=== PATIENT | male | born 1955 | race Caucasian/White ===

== ENCOUNTER 2021-07-10 07:51 | Outpatient (CLI) | payer OTHER, SELFPAY ==
[2021-07-10 08:46] LABS: Alanine Aminotransferase 43 U/L (4-50); Albumin Level 4.4 g/dL (3.5-5.1); Alkaline Phosphatase 94 U/L (38-126); Anion Gap 7 mmol/L (8-16); Aspartate Amino Transferase 31 U/L (17-59); Bilirubin,Total 0.3 mg/dL (0.2-1.3); Blood Urea Nitrogen 18 mg/dL (9-20); Calcium 9.5 mg/dL (8.4-10.2); Carbon Dioxide 27 mmol/L (22-30); Chloride 106 mmol/L (98-107); Cholesterol 193 mg/dL (0-200); Estimated Glomerular Filt Rate > 60; Glucose 124 mg/dL (65-110); HDL Direct 39 mg/dL; Potassium 4.5 mmol/L (3.4-5.0); Sodium 140 mmol/L (137-145); Triglycerides 161 mg/dL (<150)
[2021-07-10 08:50] LABS: Hemoglobin A1C 5.5 % (<5.7)
[2021-07-10 08:57] LABS: LDL Cholesterol Direct 108 mg/dL
[2021-07-10 09:38] LABS: Prostate Specific Antigen 3.2 ng/mL (< OR = 4.0)
[2021-07-15 11:03] LABS: Testosterone Total 193 ng/dL (250-1100)
== END 2021-07-10 07:52 | disposition home or self-care (01) ==
LOC: ANHLAB 07:55
PROVIDERS: PCP Nurse Practitioner; Visit Provider Nurse Practitioner
DX: Z12.5 Encounter for screening for malignant neoplasm of prostate (principal); Z68.41 Body mass index [BMI] 40.0-44.9, adult; E29.1 Testicular hypofunction
CPT/HCPCS: 36415; 80053; 80061; 83036; 84153; 84403; G0103

== ENCOUNTER 2021-08-31 02:10 | Day surgery (SDC) | payer OTHER, SELFPAY ==
[2021-08-22 14:31] VITALS: BMI 36.6
[2021-08-31 11:16] VITALS: BP 156/79; PULSE 87; RESP 18; TEMP 36.8; O2SAT 98; BMI 36.3
[2021-08-31] MEDS: LACTATED RINGERS 1,000 ML 150 ML IV CONT (11:20)
--- NOTE | 2021-08-31 11:32 | PM.HPGS ---
History of Present Illness History of Present Illness Consent: Risks, benefits, and alternatives have been discussed and questions answered. Patient agrees to proceed with procedure. Chief complaint: hx of colon polyps Narrative: Epifanio Lemus is a 66 year old male referred for colon cancer screening. He has a history of having had multiple polyps in the past Review of Systems Review of Systems: All systems reviewed & are unremarkable except as noted in HPI and below PMFSH Past Medical History Medical History Bruising Change in weight Dizziness Heat intolerance Skin change Family History Family History Father Family history of malignant neoplasm of bone Sibling Family history of pancreatic cancer Family history of lung cancer Mother Cancer Breast, Brain. Grandparent Diabetes mellitus Grandparent Diabetes mellitus Hypertension Heart disease Cerebrovascular accident Other Family history of coronary artery disease Family history of malignant neoplasm of breast Family history of malignant neoplasm of male breast Social History Social History Smoking packs per day: 1 Smoking cigarettes per day: 20.0 Years smoked: 15 Smoking pack-years: 15.00 Smoking status: Former smoker Tobacco type: cigarettes Second hand tobacco smoke exposure: No Smoking end date: 09/15/03 Alcohol intake: never Substance use: never Substance use type: does not use Living arrangements: with family Gender identity (if verbalized by the patient): Male Spiritual care concerns: No Meds Home Medications and Allergies Home Medications Medication Instructions Recorded Confirmed Type No Home Medications 08/22/21 08/31/21 History Allergies Allergy/AdvReac Type Severity Reaction Status Date / Time meperidine Allergy Unknown Unknown Verified 08/31/21 11:15 Vital Signs Vital Signs - 24 hr 08/31/21 11:16 Temperature 36.8 C Pulse Rate 87 Respiratory Rate 18 Blood Pressure 156/79 H Pulse Oximetry 98 Exam Resp: Auscultation: clear to auscultation bilaterally Cardio: Rate: regular rate Rhythm: regular rhythm GI: GI Palp: Yes Soft to palpation and No Tenderness to palpation present (GI) Assessment and Plan Assessment and plan (1) Screening for colon cancer: Code(s): Z12.11 - Encounter for screening for malignant neoplasm of colon Status: Acute Assessment and Plan: Colonoscopy with possible biopsy or polypectomy or cautery or injection of substances.
--- NOTE | 2021-08-31 11:52 | P.PNAN_ITS ---
Anes - Initial Pre Proc Eval Procedure: Operation Date: 08/31/21 12:30 Proposed Procedures p Screening Colonoscopy - Rogelio Ye MD Date/Time: 08/31/21 11:52 Surgeon: Rogelio Ye MD Pre Op Diagnosis: hx of colon polyps Patient Data Age: 66 Gender: M Height: 1.8 m Weight: 118.1 kg Last Vital Signs Temp 36.8 C 08/31/21 11:16 Pulse 87 08/31/21 11:16 Resp 18 08/31/21 11:16 BP 156/79 H 08/31/21 11:16 Pulse Ox 98 08/31/21 11:16 Allergies Allergy/AdvReac Type Severity Reaction Status Date / Time meperidine Allergy Unknown Unknown Verified 08/31/21 11:15 Home Medications Medication Instructions Recorded Confirmed Type No Home Medications 08/22/21 08/31/21 History Patient hx anesthesia problems: none Family hx anesthesia problems: none Results Review: All pre-operative results and documents have been reviewed as part of the pre-operative evaluation. [facility] Past Medical History Medical History Bruising Change in weight Dizziness Heat intolerance Skin change Family History Family History Father Family history of malignant neoplasm of bone Sibling Family history of pancreatic cancer Family history of lung cancer Mother Cancer Breast, Brain. Grandparent Diabetes mellitus Grandparent Diabetes mellitus Hypertension Heart disease Cerebrovascular accident Other Family history of coronary artery disease Family history of malignant neoplasm of breast Family history of malignant neoplasm of male breast Social History Social History Smoking packs per day: 1 Smoking cigarettes per day: 20.0 Years smoked: 15 Smoking pack-years: 15.00 Smoking status: Former smoker Tobacco type: cigarettes Second hand tobacco smoke exposure: No Smoking end date: 09/15/03 Alcohol intake: never Substance use: never Substance use type: does not use Living arrangements: with family Gender identity (if verbalized by the patient): Male Spiritual care concerns: No Anes - Eval Final PreProcedure Day of Procedure 08/31/21 11:52 Patient weight: obese Heart: regular rate and rhythm Lungs: clear to auscultation Airway: Mallampati scale class II Neurological: alert and oriented Last oral intake: >/= 8 hours ASA classification: III Emergent: no Anesthetic plan: proceed Anesthesia type and monitoring: general GIVS and standard monitoring Results Review: All pre-operative results and documents have been reviewed as part of the pre-operative evaluation. Informed Consent: The patient's anesthetic plan and its attendant risks and benefits were discussed with the patient/family/POA. Questions were solicited and answers provided to the satisfaction of the patient/family/POA.
[2021-08-31 12:34] VITALS: BP 122/70; PULSE 74; RESP 15; O2SAT 92
[2021-08-31 12:44] VITALS: BP 115/69; PULSE 71; RESP 17; O2SAT 93
[2021-08-31 12:54] VITALS: BP 151/78; PULSE 71; RESP 19; O2SAT 98
== END 2021-08-31 13:17 | disposition home or self-care (01) ==
PROVIDERS: PCP Internal Medicine; Visit Provider Internal Medicine Gastroenterology
PROC: 0DJD8ZZ Inspection of Lower Intestinal Tract, Via Natural or Artificial Opening Endoscopic (ICD-10-PCS; CPT 45378; principal; 2021-08-31 12:30)
DX: Z12.11 Encounter for screening for malignant neoplasm of colon (principal); Z86.010 Personal history of colon polyps; K57.30 Diverticulosis of large intestine without perforation or abscess without bleeding; Z87.891 Personal history of nicotine dependence; E66.9 Obesity, unspecified; Z68.36 Body mass index [BMI] 36.0-36.9, adult
CPT/HCPCS: 45378; J2704; J7120

== ENCOUNTER 2024-09-07 06:43 | Outpatient (CLI) | payer OTHER, SELFPAY ==
[2024-09-07 08:10] LABS: Basophils Absolute Auto 0.1 K/mm3 (0.0-0.1); Basophils Percent Auto 0.6 % (0.2-1.2); Eosinophils Absolute Auto 0.1 K/mm3 (0-0.3); Eosinophils Percent Auto 1.2 % (0-4.4); Hematocrit 46.7 % (42.0-52.0); Hemoglobin 15.3 g/dL (14.0-18.0); Immature Granulocyte Absolute 0.04 K/mm3 (0.00-0.031); Immature Granulocyte Percent A 0.5 % (0-0.5); Lymphocytes Absolute Auto 2.22 K/mm3 (0.9-3.2); Mean Corpuscular HGB Conc 32.8 g/dl (32-36); Mean Corpuscular Hemoglobin 31.9 pg (26-34); Mean Corpuscular Volume 97.5 fl (80-100); Mean Platelet Volume 10.4 fl (7.4-10.4); Monocytes Absolute Auto 0.5 K/mm3 (0.1-0.6); Monocytes Percent Auto 5.5 % (2.6-8.5); Neutrophils Absolute Auto 5.7 K/mm3 (1.3-6.7); Neutrophils Percent Auto 66.2 % (45.5-73.1); Platelet Count Result 245 k/mm3 (150-375); Red Blood Count 4.79 M/mm3 (4.6-6.20); Red Cell Distribution Width 12.6 % (11.5-14.5); White Blood Count 8.5 K/mm3 (4.5-10.0)
[2024-09-07 08:19] LABS: Alanine Aminotransferase 24 U/L (6-50); Albumin Level 4.1 g/dL (3.5-5.1); Alkaline Phosphatase 83 U/L (38-126); Anion Gap 1 mmol/L (4-12); Aspartate Amino Transferase 25 U/L (17-59); Bilirubin,Total 0.5 mg/dL (0.2-1.3); Blood Urea Nitrogen 16 mg/dL (9-20); Calcium 9.1 mg/dL (8.4-10.2); Carbon Dioxide 30 mmol/L (22-30); Chloride 106 mmol/L (98-107); Cholesterol 227 mg/dL (0-200); Estimated Glomerular Filt Rate > 60; Glucose 109 mg/dL (65-110); HDL Direct 45 mg/dL; Potassium 4.2 mmol/L (3.4-5.0); Sodium 137 mmol/L (137-145); Triglycerides 173 mg/dL (<150)
[2024-09-07 08:31] LABS: LDL Cholesterol Direct 135 mg/dL
[2024-09-07 08:44] LABS: Free T4 Free Thyroxine 0.92 ng/dL (0.78-2.19)
[2024-09-07 08:50] LABS: Prostate Specific Antigen 1.4 ng/mL (< OR = 4.0); Total Triiodothyronine (T3) 1.27 NG/ML (0.97-1.69)
[2024-09-07 10:04] LABS: Hepatitis C Virus Antibody Negative (Negative)
--- OUTSIDE RECORDS SUMMARY | 2024-09-14 04:28 | XMS_ITS | Encounter Summary ---
Author Organization [employer] Address [address] [place] [address] Care Team Providers Care Risk Control Consultant Name Role Phone Lynn Haynes MD Primary Care Provider Encounter Details Date Type Department Care Team (Latest Contact Info) Description 11/10/2006 Outpatient Historical [facility] Yo Rhodes MD [address] [facility] [address] [place] [address] Follow-Up Examination, Following Other Surgery (Primary Dx) Social History Tobacco Use Types Packs/Day Years Used Date Smoking Tobacco: Never Assessed Sex and Gender Information Value Date Recorded Sex Assigned at Not on file Gender Identity Not on file Sexual Orientation Not on file documented as of this encounter Plan of Treatment Not on file documented as of this encounter Visit Diagnoses Diagnosis Follow-up examination, following other surgery- Primary documented in this encounter Care Teams Risk Control Consultant Relationship Specialty Start Date End Date Lynn Haynes MD [address] [facility] [address] [place] [address] PCP - General 06/05/06 documented as of this encounter
--- OUTSIDE RECORDS SUMMARY | 2024-09-14 04:28 | XMS_ITS | Encounter Summary ---
Author Organization [employer] Address [address] [place] [address] Care Team Providers Care Network Intelligence Analyst Name Role Phone Lynn Haynes MD Primary Care Provider Encounter Details Date Type Department Care Team (Latest Contact Info) Description 06/05/2006 Inpatient Historical [facility] Yo Rhodes MD [address] [facility] [address] [place] [address] Bright Alexandre MD [address] [facility] [address] [place] [address] [facility] Com Orth Dev NEC (Primary Dx) Social History Tobacco Use Types Packs/Day Years Used Date Smoking Tobacco: Never Assessed Sex and Gender Information Value Date Recorded Sex Assigned at Not on file Gender Identity Not on file Sexual Orientation Not on file documented as of this encounter Plan of Treatment Not on file documented as of this encounter Procedures Procedure Name Priority Date/Time Associated Diagnosis Comments HEMOGLOBIN AND HEMATOCRIT Routine 06/06/2006 6:50 AM CDT HEMOGLOBIN AND HEMATOCRIT Routine 06/05/2006 7:01 PM CDT HEMOGLOBIN AND HEMATOCRIT Routine 05/26/2006 11:00 AM CDT documented in this encounter Results * (ABNORMAL) HEMOGLOBIN AND HEMATOCRIT (06/06/2006 6:50 AM CDT) HEMOGLOBIN 11.2(L) 13.6 - 16.5 g/dL INTERFACE SYSTEM HEMATOCRIT 33.1(L) 40.0 - 48.0 % INTERFACE SYSTEM 06/06/2006 6:50 AM CDT Yo Rhodes MD HEMATOLOGY ORDERABLE S Performing Organization Address [facility] Number INTERFACE SYSTEM Refer to clinic/hospital department * (ABNORMAL) HEMOGLOBIN AND HEMATOCRIT (06/05/2006 7:01 PM CDT) HEMOGLOBIN 11.7(L) 13.6 - 16.5 g/dL INTERFACE SYSTEM HEMATOCRIT 33.7(L) 40.0 - 48.0 % INTERFACE SYSTEM 06/05/2006 7:01 PM CDT Yo Rhodes MD HEMATOLOGY ORDERABLE S Performing Organization Address [facility] Number INTERFACE SYSTEM Refer to clinic/hospital department * HEMOGLOBIN AND HEMATOCRIT (05/26/2006 11:00 AM CDT) HEMOGLOBIN 14.6 13.6 - 16.5 g/dL INTERFACE SYSTEM HEMATOCRIT 41.6 40.0 - 48.0 % INTERFACE SYSTEM 05/26/2006 11:0 0 AM CDT Yo Rhodes MD HEMATOLOGY ORDERABLE S Performing Organization Address [facility] INTERFACE SYSTEM Refer to clinic/hospital department documented in this encounter Visit Diagnoses Diagnosis Other mechanical complication of other internal orthopedic device, implant, and graft- Primary documented in this encounter Care Teams Network Intelligence Analyst Relationship Specialty Start Date End Date Lynn Haynes MD [address] [address] PCP - General 06/05/06 documented as of this encounter
--- OUTSIDE RECORDS SUMMARY | 2024-09-14 04:28 | XMS_ITS | Encounter Summary ---
Author Organization [employer] Address [address] [place] [address] Care Team Providers Care Assembler Molded Frames Name Role Phone Lynn Haynes MD Primary Care Provider Encounter Details Date Type Department Care Team (Latest Contact Info) Description 06/17/2006 Outpatient Historical [facility] Yo Rhodes MD [address] [facility] [address] [place] [address] Arthrodesis Status (Primary Dx) Social History Tobacco Use Types Packs/Day Years Used Date Smoking Tobacco: Never Assessed Sex and Gender Information Value Date Recorded Sex Assigned at Not on file Gender Identity Not on file Sexual Orientation Not on file documented as of this encounter Plan of Treatment Not on file documented as of this encounter Visit Diagnoses Diagnosis Arthrodesis status- Primary documented in this encounter Care Teams Assembler Molded Frames Relationship Specialty Start Date End Date Lynn Haynes MD [address] [facility] [address] [place] [address] PCP - General 06/05/06 documented as of this encounter
--- OUTSIDE RECORDS SUMMARY | 2024-09-14 04:28 | XMS_ITS | Encounter Summary ---
Author Organization [employer] Address [address] [place] [address] Care Team Providers Care Truck Hopper Name Role Phone Lynn Haynes MD Primary Care Provider Encounter Details Date Type Department Care Team (Latest Contact Info) Description 12/29/2006 Outpatient Historical [facility] Yo Rhodes MD [address] [facility] [address] [place] [address] Follow-Up Examination, Following Other Surgery [...] Primary documented in this encounter Care Teams Truck Hopper Relationship Specialty Start Date End Date Lynn Haynes MD [address] [facility] [address] [place] [address] PCP - General 06/05/06 documented as of this encounter
--- OUTSIDE RECORDS SUMMARY | 2024-09-14 04:28 | XMS_ITS | Encounter Summary ---
Author Organization [employer] Address [address] [place] [address] Care Team Providers Care Dolly Operator Name Role Phone Lynn Haynes MD Primary Care Provider Encounter Details Date Type Department Care Team (Latest Contact Info) Description 08/04/2006 Outpatient Historical [facility] Yo Rhodes MD [address] [facility] [address] [place] [address] Other Follow-Up Examination (Primary Dx) Social History Tobacco Use Types Packs/Day Years Used Date Smoking Tobacco: Never Assessed Sex and Gender Information Value Date Recorded Sex Assigned at Not on file Gender Identity Not on file Sexual Orientation Not on file documented as of this encounter Plan of Treatment Not on file documented as of this encounter Visit Diagnoses Diagnosis Other follow-up examination(V67.59)- Primary Other follow-up examination documented in this encounter Care Teams Dolly Operator Relationship Specialty Start Date End Date Lynn Haynes MD [address] [facility] [address] [place] [address] PCP - General 06/05/06 documented as of this encounter
--- OUTSIDE RECORDS SUMMARY | 2024-09-14 04:28 | XMS_ITS | Encounter Summary ---
Author Organization [facility] Address [address] [place] [address] Care Team Providers Care Circulation Worker Name Role Phone Lynn Haynes MD Primary Care Provider Encounter Details Date Type Department Care Team (Late st Contact Info) Description 06/10/2006 Outpatient Historical [facility] Supp Svcs Blood Flow [address] [place] [address] Anthony Kelly MD [address] [facility] [address] [place] [address] Social History Tobacco Use Types Packs/Day Years Used Date Smoking Tobacco: Never Assessed Sex and Gender Information Value Date Recorded Sex Assigned at Not on file Gender Identity Not on file Sexual Orientation Not on file documented as of this encounter Plan of Treatment Not on file documented as of this encounter Visit Diagnoses Not on filedocumented in this encounter Care Teams Circulation Worker Relationship Specialty Start Date End Date Lynn Haynes MD [address] [place] [address] PCP - General 06/05/06 documented as of this encounter
--- OUTSIDE RECORDS SUMMARY | 2024-09-14 04:28 | XMS_ITS | Encounter Summary ---
Author Organization [employer] Address [address] [place] [address] Care Team Providers Care Risk Assessment Analyst Name Role Phone Lynn Haynes MD Primary Care Provider Encounter Details Date Type Department Care Team (Late st Contact Info) Description 05/26/2006 Outpatient Historical [facility] [place] [place] Support Serv. (Adt Cardiology-[facility]) [address] [place] [address] Bunny Odonnell MD NO ADDRESS ON FILE Social History Tobacco Use Types Packs/Day Years Used Date Smoking Tobacco: Never Assessed Sex and Gender Information Value Date Recorded Sex Assigned at Not on file Gender Identity Not on file Sexual Orientation Not on file documented as of this encounter Plan of Treatment Not on file documented as of this encounter Visit Diagnoses Not on filedocumented in this encounter Care Teams Risk Assessment Analyst Relationship Specialty Start Date End Date Lynn Haynes MD [address] [address] PCP - General 06/05/06 documented as of this encounter
--- OUTSIDE RECORDS SUMMARY | 2024-09-14 04:28 | XMS_ITS | Encounter Summary ---
Author Organization [employer] Address [address] [place] [address] Care Team Providers Care Activity Therapy Specialist Name Role Phone Lynn Haynes MD Primary Care Provider Encounter Details Date Type Department Care Team (Latest Contact Info) Description 09/01/2006 Outpatient Historical [facility] Yo Rhodes MD [address] [facility] [address] [place] [address] Follow-Up Examination, Following Other Surgery [...] Primary documented in this encounter Care Teams Activity Therapy Specialist Relationship Specialty Start Date End Date Lynn Haynes MD [address] [facility] [address] [place] [address] PCP - General 06/05/06 documented as of this encounter
--- OUTSIDE RECORDS SUMMARY | 2024-09-14 04:28 | XMS_ITS | Encounter Summary ---
Author Organization [employer] Address [address] [place] [address] Care Team Providers Care Rehabilitation Manager Name Role Phone Lynn Haynes MD Primary Care Provider Encounter Details Date Type Department Care Team (Latest Contact Info) Description 07/07/2006 Outpatient Historical [facility] Yo Rhodes MD [address] [facility] [address] [place] [address] Follow-Up Examination, Following Other Surgery [...] Primary documented in this encounter Care Teams Rehabilitation Manager Relationship Specialty Start Date End Date Lynn Haynes MD [address] [facility] [address] [place] [address] PCP - General 06/05/06 documented as of this encounter
--- OUTSIDE RECORDS SUMMARY | 2024-09-14 04:28 | XMS_ITS | Clinical Summary ---
Author Organization [facility] Address [address] [facility] Attn: Epic Prelude ADT [place] [address] Care Team Providers Care Felt Hat Flanging Operator Name Role Phone Lynn Haynes MD Primary Care Provider Social History Tobacco Use Types Packs/Day Years Used Date Smoking Tobacco: Never Assessed Sex and Gender Information Value Date Recorded Sex Assigned at Not on file Gender Identity Not on file Sexual Orientation Not on file Plan of Treatment Health Maintenance Due Date Last Done Comments DTAP/TDAP/TD VACCINES (1 - Tdap) 1976 COLORECTAL SCREENING 2002 Colorectal Cancer Screening 2002 FIT-DNA Q 3 years 2002 FIT/FOBT Q 1 year 2002 Flex Sig/CT Colonography Q 5 years 2002 ZOSTER VACCINE (1 of 2) 2007 PNEUMOCOCCAL VACCINE 65+ YEARS (1 of 1 - PCV) 08/02/20 INFLUENZA VACCINE (#1) 2024 RSV VACCINE (60+ or ) (1 - 1-dose 75+ series) 2032 Care Teams Felt Hat Flanging Operator Relationship Specialty Start Date End Date Lynn Haynes MD [address] [address] PCP - General 06/05/06
== END 2024-09-07 06:44 | disposition home or self-care (01) ==
LOC: ANHLAB 06:48
PROVIDERS: PCP Family Medicine
DX: R53.83 Other fatigue (principal); I10 Essential (primary) hypertension; Z11.59 Encounter for screening for other viral diseases; Z12.5 Encounter for screening for malignant neoplasm of prostate; E78.5 Hyperlipidemia, unspecified
CPT/HCPCS: 36415; 80053; 80061; 84153; 84439; 84443; 84480; 85025; 86803; G0103

== ENCOUNTER 2025-02-04 07:04 | Outpatient (CLI) | payer MEDICARE, SELFPAY ==
--- OUTSIDE RECORDS SUMMARY | 2025-02-04 07:09 | XMS_ITS | Encounter Summary ---
Author Organization [employer] Address [address] [place] [address] Care Team Providers Care Digital Photographic Printer Name Role Phone Lynn Haynes MD Primary Care Provider Encounter Details Date Type Department Care Team (Latest Contact Info) Description 11/10/2006 Outpatient Historical [facility] Yo Rhodes MD NO ADDRESS ON FILE Follow-Up Examination, Following Other Surgery (Primary Dx) Social History Tobacco Use Types Packs/Day Years Used Date Smoking Tobacco: Never Assessed Sex and Gender Information Value Date Recorded Sex Assigned at Not on file Legal Sex Male 4:17 AM SLIP COVER MAKER Gender Identity Not on file Sexual Orientation Not on file documented as of this encounter Plan of Treatment Not on file documented as of this encounter Visit Diagnoses Diagnosis Follow-up examination, following other surgery- Primary documented in this encounter Care Teams Digital Photographic Printer Relationship Specialty Start Date End Date Lynn Haynes MD [address] [facility] [address] [place] [address] PCP - General 06/05/06 documented as of this encounter
--- OUTSIDE RECORDS SUMMARY | 2025-02-04 07:10 | XMS_ITS | Encounter Summary ---
Author Organization [employer] Address [address] [place] [address] Care Team Providers Care Trash Hauler Name Role Phone Lynn Haynes MD Primary [...] on file Legal Sex Male 4:17 AM CIVIL ENGINEERING ASSISTANT Gender Identity Not on file Sexual Orientation Not on file documented as of this encounter Plan of Treatment Not on file documented as of this encounter Visit Diagnoses Diagnosis Follow-up examination, following other surgery- Primary documented in this encounter Care Teams Trash Hauler Relationship Specialty Start Date End Date Lynn Haynes MD [address] [facility] [address] [place] [address] PCP - General 06/05/06 documented as of this encounter
--- OUTSIDE RECORDS SUMMARY | 2025-02-04 07:10 | XMS_ITS | Encounter Summary ---
Author Organization [employer] Address [address] [place] [address] Care Team Providers Care Tour Narrator Name Role Phone Lynn Haynes MD Primary [...] on file Legal Sex Male 4:17 AM TABLE HAND Gender Identity Not on file Sexual Orientation Not on file documented as of this encounter Plan of Treatment Not on file documented as of this encounter Visit Diagnoses Diagnosis Follow-up examination, following other surgery- Primary documented in this encounter Care Teams Tour Narrator Relationship Specialty Start Date End Date Lynn Haynes MD [address] [facility] [address] [place] [address] PCP - General 06/05/06 documented as of this encounter
--- OUTSIDE RECORDS SUMMARY | 2025-02-04 07:10 | XMS_ITS | Clinical Summary ---
Author Organization [facility] Address [address] [facility] Attn: Epic Prelude ADT [place] [address] Care Team Providers Care Antique Repairer Name Role Phone Lynn Haynes MD Primary Care Provider Social History Tobacco Use Types Packs/Day Years Used Date Smoking Tobacco: Never Assessed Sex and Gender Information Value Date Recorded Sex Assigned at Not on file Legal Sex Male 4:17 AM PARKS RECREATION DIRECTOR Gender Identity Not on file Sexual Orientation Not on file Plan of Treatment Health Maintenance Due Date Last Done Comments DTAP/TDAP/TD VACCINES (1 - Tdap) 1976 COLORECTAL SCREENING 2002 Colorectal Cancer Screening 2002 FIT-DNA Q 3 years 2002 FIT/FOBT Q 1 year 2002 Flex Sig/CT Colonography Q 5 years 2002 PNEUMOCOCCAL VACCINE 50+ YEARS (1 of 1 - PCV) 08/02/20 07 ZOSTER VACCINE (1 of 2) 2007 INFLUENZA VACCINE (#1) 2024 RSV VACCINE (60+ or ) (1 - 1-dose 75+ series) 2032 Care Teams Antique Repairer Relationship Specialty Start Date End Date Lynn Haynes MD [address] [address] PCP - General 06/05/06
--- OUTSIDE RECORDS SUMMARY | 2025-02-04 07:10 | XMS_ITS | Encounter Summary ---
Author Organization [facility] Address [address] [place] [address] Care Team Providers Care Bracelet Maker Novelty Name Role Phone Lynn Haynes MD Primary Care Provider Encounter Details Date Type Department Care Team (Latest Contact Info) Description 06/17/2006 Outpatient Historical [facility] Yo Rhodes MD NO ADDRESS ON FILE Arthrodesis Status (Primary Dx) Social History Tobacco Use Types Packs/Day Years Used Date Smoking Tobacco: Never Assessed Sex and Gender Information Value Date Recorded Sex Assigned at Not on file Legal Sex Male 4:17 AM OFFICE ASSISTANT RECEPTIONIST Gender Identity Not on file Sexual Orientation Not on file documented as of this encounter Plan of Treatment Not on file documented as of this encounter Visit Diagnoses Diagnosis Arthrodesis status- Primary documented in this encounter Care Teams Bracelet Maker Novelty Relationship Specialty Start Date End Date Lynn Haynes MD [address] [facility] [address] [place] [address] PCP - General 06/05/06 documented as of this encounter
--- OUTSIDE RECORDS SUMMARY | 2025-02-04 07:10 | XMS_ITS | Encounter Summary ---
Author Organization [employer] Address [address] [place] [address] Care Team Providers Care Copra Processor Name Role Phone Lynn Haynes MD Primary [...] on file Legal Sex Male 4:17 AM PHARMACEUTICAL SALES SPECIALIST Gender Identity Not on file Sexual Orientation Not on file documented as of this encounter Plan of Treatment Not on file documented as of this encounter Visit Diagnoses Diagnosis Follow-up examination, following other surgery- Primary documented in this encounter Care Teams Copra Processor Relationship Specialty Start Date End Date Lynn Haynes MD [address] [facility] [address] [place] [address] PCP - General 06/05/06 documented as of this encounter
--- OUTSIDE RECORDS SUMMARY | 2025-02-04 07:10 | XMS_ITS | Encounter Summary ---
Author Organization [employer] Address [address] [place] [address] Care Team Providers Care Supervisor Electron Tube Processing Name Role Phone Lynn Haynes MD Primary Care Provider Encounter Details Date Type Department Care Team (Late st Contact Info) Description 05/26/2006 Outpatient Historical [facility] Support Serv. (Adt Cardiology[facility]) [address] [place] [address] Bunny Odonnell MD NO ADDRESS ON FILE Social History Tobacco Use Types Packs/Day Years Used Date Smoking Tobacco: Never Assessed Sex and Gender Information Value Date Recorded Sex Assigned at Not on file Legal Sex Male 4:17 AM AREA FIELD PERSON Gender Identity Not on file Sexual Orientation Not on file documented as of this encounter Plan of Treatment Not on file documented as of this encounter Visit Diagnoses Not on filedocumented in this encounter Care Teams Supervisor Electron Tube Processing Relationship Specialty Start Date End Date Lynn Haynes MD [address] [address] PCP - General 06/05/06 documented as of this encounter
--- OUTSIDE RECORDS SUMMARY | 2025-02-04 07:10 | XMS_ITS | Encounter Summary ---
Author Organization [facility] Address [address] [place] [address] Care Team Providers Care Warehouse Checker Name Role Phone Lynn Haynes MD Primary Care Provider Encounter Details Date Type Department Care Team (Latest Contact Info) Description 06/05/2006 Inpatient Historical [facility] Yo Rhodes MD NO ADDRESS ON FILE Bright Alexandre MD [address] 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 Gender Identity Not on file Sexual Orientation [...] 6:50 AM CDT Yo Rhodes MD HEMATOLOGY ORDERABLES Final Res ult Performing Organization Address [facility] Phone Number INTERFACE SYSTEM Refer to clinic/hospital department * (ABNORMAL) HEMOGLOBIN AND HEMATOCRIT (06/05/2006 7:01 PM CDT) HEMOGLOBIN 11.7(L) 13.6 - 16.5 g/dL INTERFACE SYSTEM HEMATOCRIT 33.7(L) 40.0 - 48.0 % INTERFACE SYSTEM 06/05/2006 7:01 PM CDT Yo Rhodes MD HEMATOLOGY ORDERABLES Final Res ult Performing Organization Address [facility] Phone Number INTERFACE SYSTEM Refer to clinic/hospital department * HEMOGLOBIN AND HEMATOCRIT (05/26/2006 11:00 AM CDT) HEMOGLOBIN 14.6 13.6 - 16.5 g/dL INTERFACE SYSTEM HEMATOCRIT 41.6 40.0 - 48.0 % INTERFACE SYSTEM 05/26/2006 11:0 0 AM CDT Yo Rhodes MD HEMATOLOGY ORDERABLES Final Res ult Performing Organization Address [facility] Phone Number INTERFACE SYSTEM Refer to clinic/hospital department documented in this encounter Visit Diagnoses Diagnosis Other mechanical complication of other internal orthopedic device, implant, and graft- Primary documented in this encounter Care Teams Warehouse Checker Relationship Specialty Start Date End Date Lynn Haynes MD [address] [address] PCP - General 06/05/06 documented as of this encounter
--- OUTSIDE RECORDS SUMMARY | 2025-02-04 07:10 | XMS_ITS | Encounter Summary ---
Author Organization [employer] Address 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
--- OUTSIDE RECORDS SUMMARY | 2025-02-04 07:10 | XMS_ITS | Encounter Summary ---
Author Organization [facility] Address [address] [place] [address] Care Team Providers Care Customer Retention Representative Name Role Phone Lynn Haynes MD Primary Care Provider Encounter Details Date Type Department Care Team (Late st Contact Info) Description 06/10/2006 Outpatient Historical [facility] Blood Flow [address] [place] [address] Anthony Kelly MD [address] 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
[2025-02-04 07:32] LABS: Basophils Percent Auto 0.4 % (0.2-1.2); Eosinophils Absolute Auto 0.1 K/mm3 (0-0.3); Eosinophils Percent Auto 1.4 % (0-4.4); Hematocrit 44.4 % (42.0-52.0); Hemoglobin 14.6 g/dL (14.0-18.0); Immature Granulocyte Absolute 0.02 K/mm3 (0.00-0.031); Immature Granulocyte Percent A 0.3 % (0-0.5); Lymphocytes Absolute Auto 2.03 K/mm3 (0.9-3.2); Mean Corpuscular HGB Conc 32.9 g/dl (32-36); Mean Corpuscular Hemoglobin 32.2 pg (26-34); Mean Corpuscular Volume 97.8 fl (80-100); Mean Platelet Volume 9.3 fl (7.4-10.4); Monocytes Absolute Auto 0.5 K/mm3 (0.1-0.6); Monocytes Percent Auto 7.3 % (2.6-8.5); Neutrophils Absolute Auto 4.3 K/mm3 (1.3-6.7); Neutrophils Percent Auto 61.6 % (45.5-73.1); Platelet Count Result 240 k/mm3 (150-375); Red Blood Count 4.54 M/mm3 (4.6-6.20); Red Cell Distribution Width 13.2 % (11.5-14.5)
[2025-02-04 07:47] LABS: Alanine Aminotransferase 24 U/L (6-50); Albumin Level 4.2 g/dL (3.5-5.1); Alkaline Phosphatase 91 U/L (38-126); Anion Gap 5 mmol/L (4-12); Aspartate Amino Transferase 25 U/L (17-59); Bilirubin,Total 0.4 mg/dL (0.2-1.3); Blood Urea Nitrogen 13 mg/dL (9-20); Calcium 8.9 mg/dL (8.4-10.2); Carbon Dioxide 28 mmol/L (22-30); Chloride 106 mmol/L (98-107); Cholesterol 254 mg/dL (0-200); Estimated Glomerular Filt Rate > 60; Glucose 100 mg/dL (65-110); HDL Direct 40 mg/dL; Potassium 4.6 mmol/L (3.4-5.0); Sodium 139 mmol/L (137-145); Triglycerides 293 mg/dL (<150)
[2025-02-04 07:57] LABS: LDL Cholesterol Direct 144 mg/dL
[2025-02-04 08:15] LABS: Total Triiodothyronine (T3) 1.23 NG/ML (0.97-1.69)
[2025-02-04 08:20] LABS: Free T4 Free Thyroxine 1.07 ng/dL (0.78-2.19)
== END 2025-02-04 07:05 | disposition home or self-care (01) ==
LOC: ANHLAB 07:07
PROVIDERS: PCP Family Medicine; Visit Provider Nurse Practitioner Family
DX: E66.9 Obesity, unspecified (principal); I10 Essential (primary) hypertension
CPT/HCPCS: 36415; 80053; 80061; 84439; 84443; 84480; 85025